=== PATIENT | male | born 1940 | race Hispanic/Latino ===

== ENCOUNTER 2017-01-17 23:39 | Inpatient (IN) | payer MEDICARE ==
--- NOTE | 2017-01-17 23:45 | ED PDOC ---
Arrival/HPI - General Chief Complaint: Shortness Of Breath Time Seen by Provider: 01/17/17 23:42 Historian: Patient - History of Present Illness Narrative History of Present Illness (Text): 01/17/17 23:45 Rohit Castro is a 76 year old male, whose past medical history includes COPD , lung mass, CAD, and hypertension, who presents to the ED brought in by EMS accompanied by daughter complaining of shortness of breath. Daughter states patient underwent a lung biopsy for evaluation of a right upper lung mass earlier today and patient now complaining of shortness of breath tonight. Patient denies any fever, chills, nausea, vomiting, headache, dizziness, or any other complaints. PMD: Dr. Ramos Human Resources Executive: Dr. Alexander Time/Duration: Other (tonight) Symptom Onset: Gradual Symptom Course: Unchanged Activities at Onset: Light Context: Home Past Medical History - Provider Review Nursing Documentation Reviewed: Yes - Tetanus Immunization Tetanus Immunization: Unknown - Cardiac Hx Pacemaker: No - Pulmonary Hx Chronic Obstructive Pulmonary Disease (COPD): Yes - Neurological Hx Paralysis: No - HEENT Hx HEENT Disorder: Yes (RX READING GLASSES) - Hematological/Oncological Hx Blood Transfusions: No - Musculoskeletal/Rheumatological Hx Musculoskeletal Disorders: Yes - Gastrointestinal Hx Gastrointestinal Disorders: (INTERNAL HEMORRHOIDS) - Psychiatric Hx Emotional Abuse: No Hx Physical Abuse: No Hx Substance Use: No - Surgical History Other/Comment: CARDIAC STENTS - Anesthesia Hx Anesthesia Reactions: No Hx Malignant Hyperthermia: No - Suicidal Assessment Feels Threatened In Home Enviroment: No Family/Social History - Physician Review Nursing Documentation Reviewed: Yes Family/Social History: Unknown Family HX Smoking Status: Heavy Smoker > 10 Cigarettes Daily Hx Alcohol Use: Yes (OCCASIONAL BEER) Hx Substance Use: No Hx Substance Use Treatment: No Allergies/Home Meds Allergies/Adverse Reactions: Allergies diltiazem Allergy (Severe, Verified 01/16/17 12:04) RASH Home Medications: Home Meds Medication Instructions Recorded Confirmed Aspirin [Aspir 81] 81 mg PO DAILY 09/25/11 01/17/17 Atorvastatin Calcium [Lipitor] 20 mg PO DAILY 09/25/11 01/17/17 Albuterol 0.083% [Albuterol 3 ml IH Q6H PRN 01/16/17 01/17/17 Sulfate 3 Ml] Lisinopril [Zestril] 10 mg PO DAILY 01/16/17 01/17/17 Mesalamine [Lialda] 2 tab PO QAM 01/16/17 01/17/17 Ranolazine [Ranexa] 500 mg PO BID 01/16/17 01/17/17 Atropine/Diphenoxylate [Lonox 1 tab PO AMHS PRN 01/17/17 01/17/17 0.025 MG-2.5 MG] levoFLOXacin [Levaquin] 500 mg PO DAILY 01/17/17 01/17/17 Review of Systems - Physician Review All systems were reviewed & negative as marked: Yes - Review of Systems Constitutional: Normal. absent: Fevers Eyes: Normal ENT: Normal Respiratory: SOB Gastrointestinal: Normal. absent: Abdominal Pain, Diarrhea, Nausea, Vomiting Genitourinary Male: Normal. absent: Dysuria, Frequency, Hematuria, Urinary Output Changes Musculoskeletal: Normal. absent: Back Pain, Neck Pain Skin: Normal. absent: Rash Neurological: Normal. absent: Headache, Dizziness Endocrine: Normal Hemo/Lymphatic: Normal Psychiatric: Normal Physical Exam Vital Signs Reviewed: Yes Vital Signs Temp Pulse Resp BP Pulse Ox 01/18/17 04:15 20 91 L 01/18/17 04:10 96 H 20 180/75 H 91 L 01/18/17 02:41 98.1 F 63 20 162/78 H 94 L 01/18/17 02:19 63 23 150/83 88 L 01/18/17 02:14 67 27 H 146/85 90 L 01/18/17 02:04 71 18 154/90 H 90 L 01/18/17 01:59 69 22 160/82 H 91 L 01/18/17 01:57 70 20 148/85 91 L 01/18/17 01:49 70 18 145/84 92 L 01/18/17 01:44 69 7 L 156/86 H 93 L 01/18/17 01:39 72 7 L 148/85 94 L 01/17/17 23:45 22 93 L 01/17/17 23:39 98.1 F 88 24 161/96 H 95 Temperature: Afebrile Blood Pressure: Hypertensive Pulse: Regular Respiratory Rate: Normal Appearance: Positive for: Well-Appearing, Non-Toxic Pain Distress: None Mental Status: Positive for: Alert and Oriented X 3 - Systems Exam Head: Present: Atraumatic, Normocephalic Pupils: Present: PERRL Extroacular Muscles: Present: EOMI Conjunctiva: Present: Normal Mouth: Present: Moist Mucous Membranes Neck: Present: Normal Range of Motion Respiratory/Chest: Present: Wheezes (Slight end-expiratory wheezing bilaterally) , Decreased Breath Sounds (absent breath sounds to right upper lung). No: Respiratory Distress, Accessory Muscle Use Medical Decision Making ED Course and Treatment: 01/17/17 23:45 Impression: 76 year old male c/o shortness of breath tonight. Pt underwent lung biopsy earlier today. Differential Diagnosis included but are not limited to: pneumothorax vs. COPD Plan: -- EKG -- CXR -- Labs, cardiac enzymes, BNP -- Duoneb -- Reassess and disposition Progress Notes: 01/17/17 23:51 Reviewed EKG, NSr at 73 bpm. Inferior infarct. Non-specific ST/T wave changes. reviewed radiology, CXR shows right-sided pneumothorax. residential housekeeper television equipment operator paged. 01/17/17 23:[address] Ang, surgical aide television equipment operator, who is aware and agrees to evaluate pt. Call placed Dr. Almonte, surgeon television equipment operator. 01/18/17 01:00 PROCEDURE: Chest Tube Insertion Performed by the surgical aide under my supervision. Consent: Discussion of the risks, benefits, and alternatives to the procedure, along with informed consent was precluded by the urgency of the procedure and the patient condition. Timeout: A timeout to verify the correct patient, procedure, and site was performed. Procedure Site: right anterior chest wall Indication: Right pneumothorax Preparation: The patient was placed in the supine position and the skin over the right anterior chest wall was prepped and draped in sterile fashion. 1% Lidocaine was used to anesthetize the surrounding skin area. Procedure: Using a scalpel and blunt dissection, 2 cm skin incision was made in the mid-axillary line at the inframammary crease. Utilizing blunt dissection a subcutaneous tunnel was created cephalad just adjacent to the superior rib. RIGHT pleural space was entered bluntly and gush of air was observed. A finger was inserted into the pleural space to check for anatomy and guide tube insertion. A 28 F thoracostomy tube was inserted using a Tami clamp and positioned appropriately. The chest tube was sutured securely to the skin and a sterile dressing applied. A pleurevac was attached to the chest tube and a chest x-ray obtained. Post-procedure: The patient tolerated the procedure well with no immediate complications/PT. WITH IMMEDIATE RELIEF FOLLOWING THE PROCEDURE* CXR Confirmation: Yes 01/18/17 01:22 reviewed post-chest tube CXR, shows right lung re-expanded. 01/18/17 01:[address] Nida Ramos, who is aware and agrees with plan. Accepts pt in to his service. Requests Dr. Almonte on consult. 01/18/17 01:[address] Bernard San, e learning manager, who is aware and agrees with plan. Pt will be admitted to ICU for pneumothorax under Dr. Ramos's service. 01/18/17 02:05 Case discussed with medical engineer television equipment operator, Dr. Deshpande, made aware of admission.To ED with e learning manager to evaluate the pt. - Critical Care Critical Care Minutes: 45 minutes - Lab Interpretations Lab Results: 01/17/17 23:50 01/17/17 23:50 Lab Results 01/17/17 23:50: WBC 11.0 D, RBC 4.55, Hgb 15.0, Hct 41.8 L, MCV 91.9, MCH 33.0 , MCHC 35.9, RDW 13.7, Plt Count 183, MPV 10.3 01/17/17 23:50: Sodium 137, Potassium 4.3, Chloride 103, Carbon Dioxide 20 L, Anion Gap 18, BUN 19, Creatinine 1.0, Est GFR ( Amer) > 60, Est GFR (Non- Af Amer) > 60, Random Glucose 108, Calcium 9.7, Total Bilirubin 1.0, AST 34, ALT 29, Alkaline Phosphatase 83, Lactate Dehydrogenase 757 H, Total Creatine Kinase 117, Troponin I < 0.01, NT-Pro-B Natriuret Pep 64.4, Total Protein 8.4 H , Albumin 4.6, Globulin 3.8, Albumin/Globulin Ratio 1.2 01/17/17 23:50: PT 11.3, INR 1.05, APTT 34.3 H I have reviewed the lab results: Yes - RAD Interpretation Radiology Orders: 01/17/17 23:45 CHEST PORTABLE [RAD] Stat 01/18/17 01:22 CHEST PORTABLE [RAD] Stat Senior Sourcing Manager: ED Physician - EKG Interpretation Interpreted by ED Physician: Yes Type: 12 lead EKG - Medication Orders Current Medication Orders: Albuterol/Ipratropium (Duoneb 3 Mg/0.5 Mg (3 Ml) Ud) 3 ml IH Q2H PRN PRN Reason: Shortness of Breath Aspirin (Ecotrin) 81 mg PO DAILY SERGIO Atorvastatin Calcium (Lipitor) 20 mg PO DAILY SERGIO Cefazolin Sodium (Ancef 1gm In Ns) 1 gm in 100 mls @ 100 mls/hr IVPB STAT STA PRN Reason: Protocol Stop: 01/18/17 05:38 Lisinopril (Zestril) 10 mg PO DAILY [facility] Morphine Sulfate (Morphine) 2 mg IVP Q4H PRN PRN Reason: Pain, moderate (4-7) Last Admin: 01/18/17 02:34 Dose: 2 mg [facility] Pain Assessment Document 01/18/17 02:34 [facility] (Rec: 01/18/17 02:[address] [id number]) Pain Reassessment Is this a pain reassessment? No Sleep Is patient sleeping during reassessment? No Presence of Pain Presence of Pain Yes Pain Scale Used Pain Scale Used Numeric Location Left, Right or Bilateral Right Pain Location Body Site Chest Description Description Constant Intensity of Pain at present 7 Pain Behavior Facial Grimacing Aggravating Factors Changing Position Alleviating Factors/Management Position Change Techniques Alleviating Factors Medication IVP Administration Document 01/18/17 02:34 [facility] (Rec: 01/18/17 02:[address] [id number]) Charges for Administration # of IVP Administrations 1 Re-Assess: [facility] Pain Assessment Document 01/18/17 03:34 [facility] (Rec: 01/18/17 04:14 [facility] [id number] Pain Reassessment Is this a pain reassessment? Yes Sleep Is patient sleeping during reassessment? No Presence of Pain Presence of Pain Yes Pain Scale Used Pain Scale Used Numeric Description Intensity of Pain at present 7 Mesalamine [Lialda] (2 Tab (Home Med)) 2 tab PO QAM SERGIO Ranolazine [Ranexa] (500 Mg (Home Med)) 500 mg PO BID SERGIO Pantoprazole Sodium (Protonix Ec Tab) 40 mg PO 0600 SERGIO Discontinued Medications Albuterol/Ipratropium (Duoneb 3 Mg/0.5 Mg (3 Ml) Ud) 3 ml IH ONCE STA Stop: 01/17/17 23:47 Last Admin: 01/17/17 23:57 Dose: 3 ml Lidocaine HCl (Lidocaine 1% (20ml)) Confirm Administered Dose 20 ml .ROUTE .STK- MED ONE Stop: 01/18/17 01:01 Morphine Sulfate (Morphine) Confirm Administered Dose 4 mg .ROUTE .STK-MED ONE Stop: 01/18/17 00:36 Last Admin: 01/18/17 02:31 Dose: Morphine Sulfate (Morphine) 4 mg IVP STAT STA Stop: 01/18/17 00:46 Last Admin: 01/18/17 00:45 Dose: 4 mg MAR Pain Assessment Document 01/18/17 00:45 [email or web address] (Rec: 01/18/17 02:[address] [id number]) Pain Reassessment Is this a pain reassessment? No Sleep Is patient sleeping during reassessment? No Presence of Pain Presence of Pain Yes Pain Scale Used Pain Scale Used Numeric Location Left, Right or Bilateral Right Pain Location Body Site Chest Description Description Constant Intensity of Pain at present 7 Pain Behavior Facial Grimacing Aggravating Factors Changing Position Alleviating Factors/Management Position Change Techniques Alleviating Factors Medication IVP Administration Document 01/18/17 00:45 [email or web address] (Rec: 01/18/17 02:35 [facility] [id number]) Charges for Administration # of IVP Administrations 1 - Scribe Statement The provider has reviewed the documentation as recorded by the Scribroman Sullivan All medical record entries made by the Scribroman were at my direction and personally dictated by me. I have reviewed the chart and agree that the record accurately reflects my personal performance of the history, physical exam, medical decision making, and the department course for this patient. I have also personally directed, reviewed, and agree with the discharge instructions and disposition. Disposition/Present on Arrival - Present on Arrival Any Indicators Present on Arrival: No History of DVT/PE: No History of Uncontrolled Diabetes: No Urinary Catheter: No History of Decub. Ulcer: No History Surgical Site Infection Following: None - Disposition Have Diagnosis and Disposition been Completed?: Yes Diagnosis: Pneumothorax, Status post chest tube placement Disposition: HOSPITALIZED Disposition Time: 02:00 Patient Plan: Admission Patient Problems: Current Active Problems Problem Status Onset Pneumothorax Acute Status post chest tube placement Acute Condition: STABLE
[2017-01-17] MEDS ORDERED: Albuterol-Ipratrop 3 mg / 0.5 (3 ml) UD IH STA (23:46)
[2017-01-18 00:06] LABS: HEMATOCRIT 41.8 % (42.0-52.0); MEAN CELL VOLUME 91.9 fl (80.0-105.0); MEAN CORPUSCULAR HGB CONC 35.9 g/dl (31.0-37.0); MEAN PLATELET VOLUME 10.3 fl (7.0-11.0); RED CELL DISTRIBUTION WIDTH 13.7 % (11.5-14.5)
[2017-01-18 00:11] LABS: ALB/GLOB RATIO 1.2 (1.1-1.8); ALKALINE PHOSPHATASE 83 U/L (38-126); ALT/SGPT 29 U/L (7-56); AST/SGOT 34 U/L (17-59); BLOOD UREA NITROGEN 19 mg/dL (7-21); CALCIUM 9.7 mg/dL (8.4-10.5); CARBON DIOXIDE 20 mmol/L (21-33); CHLORIDE 103 mmol/L (98-107); GFR AFRICAN-AMERICAN > 60; GLUCOSE,RANDOM 108 mg/dL (70-110); POTASSIUM 4.3 mmol/L (3.6-5.0); SODIUM 137 mmol/L (132-148); TOTAL PROTEIN 8.4 g/dL (5.8-8.3)
[2017-01-18 00:14] LABS: INR 1.05 (0.93-1.08); PARTIAL THROMBOPLASTIN TIME 34.3 Seconds (23.7-30.8)
[2017-01-18 00:33] LABS: TROPONIN I < 0.01 ng/mL
[2017-01-18] MEDS ORDERED: Morphine 4 mg/ml ISec ONE (00:35)
[2017-01-18] MEDS ORDERED: Morphine 4 mg/ml ISec IVP STA (00:45)
[2017-01-18] MEDS ORDERED: Lidocaine 1% Inj (20ml) ONE (01:00)
--- NOTE | 2017-01-18 02:02 | CP.PCM.CON ---
History of Present Illness - History of Present Illness History of Present Illness: General Surgery Consult Note for Dr. Almonte Reason for Consult: R sided Pneumothorax 76 M with PMH of COPD, Lung nodule, CAD with stents x 5, MS, Prostate CA presents to [facility] with complaint of shortness of breath. Patient went for lung biopsy this afternoon. Around 11 pm, patient became short of breath and decided to call his daughter to bring him to hospital. Patient never experienced this feeling before. Patient currently denying any pain. Exertion exacerbates his shortness of breath while nothing alleviates it. Patient denies fever/chills, cp , abd pain, n/v/d, numbness/tingling, syncope, vertigo, lightheadedness/ dizziness. PMD: Dr. Ramos PMH: CAD with stents x 5, MS (1998), COPD, Lung nodule, Prostate CA s/p radioactive seeds/radiation, HTN, colitis Meds: As per EMR Allergy: Diltiazem PSH: Cardiac stents x 5, cardiac cath, Hosp: Last year for cardiac cath FH: CAD/MS in Mother and Father Social: 3 packs per day for 60 years, social drinker, denies illicit drug use Review of Systems - Constitutional Constitutional: absent: Chills, Fatigue, Fever, Malaise - EENT Eyes: absent: Change in Vision, Loss of Vision Ears: absent: Dizziness Nose/Mouth/Throat: absent: Nasal Congestion, Sore Throat, Neck Pain - Cardiovascular Cardiovascular: Dyspnea. absent: Chest Pain, Chest Pain at Rest, Chest Pain with Activity, Claudication, Diaphoresis, Edema, Palpitations, Pedal Edema, Radiating Pain - Respiratory Respiratory: Dyspnea, Dyspnea on Exertion. absent: Cough, Hemoptysis, Wheezing , Chest Congestion - Gastrointestinal Gastrointestinal: absent: Abdominal Pain, Constipation, Diarrhea, Nausea, Vomiting - Genitourinary Genitourinary: absent: Change in Urinary Stream, Difficulty Urinating, Dysuria - Musculoskeletal Musculoskeletal: absent: Arthralgias, Myalgias, Numbness, Tingling - Integumentary Integumentary: absent: Changing Lesions, New Lesions - Neurological Neurological: absent: Dizziness, Numbness, Headaches, Syncope, Tingling, Vertigo , Weakness - Psychiatric Psychiatric: absent: Anxiety, Depression, Homicidal Ideation, Suicidal Ideation - Endocrine Endocrine: absent: Fatigue, Palpitations, Polydipsia, Polyphagia, Polyuria - Hematologic/Lymphatic Hematologic: absent: Easy Bleeding, Easy Bruising, Lymphadenopathy Past Patient History - Tetanus Immunizations Tetanus Immunization: Unknown - Past Social History Smoking Status: Heavy Smoker > 10 Cigarettes Daily - CARDIAC Hx Pacemaker: No - PULMONARY Hx Chronic Obstructive Pulmonary Disease (COPD): Yes - NEUROLOGICAL Hx Paralysis: No - HEENT Hx HEENT Problems: Yes (RX READING GLASSES) - HEMATOLOGICAL/ONCOLOGICAL Hx Blood Transfusions: No - MUSCULOSKELETAL/RHEUMATOLOGICAL Hx Musculoskeletal Disorders: Yes - GASTROINTESTINAL Hx Gastrointestinal Disorders: (INTERNAL HEMORRHOIDS) - PSYCHIATRIC Hx Emotional Abuse: No Hx Physical Abuse: No Hx Substance Use: No - SURGICAL HISTORY Other/Comment: CARDIAC STENTS - ANESTHESIA Hx Anesthesia Reactions: No Hx Malignant Hyperthermia: No Meds Allergies/Adverse Reactions: Allergies Allergy/AdvReac Type Severity Reaction Status Date / Time diltiazem Allergy Severe RASH Verified 01/16/17 12:04 Physical Exam - Constitutional Appears: In Acute Distress - Head Exam Head Exam: ATRAUMATIC, NORMOCEPHALIC - Eye Exam Eye Exam: Normal appearance - ENT Exam ENT Exam: Mucous Membranes Moist - Neck Exam Additional comments: trachea midline - Respiratory Exam Respiratory Exam: Accessory Muscle Use, Decreased Breath Sounds (on R side) - Cardiovascular Exam Cardiovascular Exam: REGULAR RHYTHM - GI/Abdominal Exam GI & Abdominal Exam: Soft. absent: Distended, Guarding, Rebound, Tenderness - Extremities Exam Extremities exam: Positive for: normal capillary refill, pedal pulses present - Neurological Exam Neurological exam: Alert, CN II-XII Intact, Oriented x3 - Psychiatric Exam Psychiatric exam: Normal Affect, Normal Mood - Skin Skin Exam: Dry, Intact, Normal Color, Warm Results - Vital Signs Recent Vital Signs: Last Vital Signs Temp 98.1 F 01/17/17 23:39 Pulse 88 01/17/17 23:39 Resp 24 01/17/17 23:39 BP 161/96 H 01/17/17 23:39 Pulse Ox 95 01/17/17 23:39 - Labs Result Diagrams: 01/18/17 06:30 01/18/17 06:30 Labs: Laboratory Results - last 24 hr 01/17/17 01/17/17 01/17/17 23:50 23:50 23:50 WBC 11.0 D RBC 4.55 Hgb 15.0 Hct 41.8 L MCV 91.9 MCH 33.0 MCHC 35.9 RDW 13.7 Plt Count 183 MPV 10.3 PT 11.3 INR 1.05 APTT 34.3 H Sodium 137 Potassium 4.3 Chloride 103 Carbon Dioxide 20 L Anion Gap 18 BUN 19 Creatinine 1.0 Est GFR ( Amer) > 60 Est GFR (Non-Af Amer) > 60 Random Glucose 108 Calcium 9.7 Total Bilirubin 1.0 AST 34 ALT 29 Alkaline Phosphatase 83 Lactate Dehydrogenase 757 H Total Creatine Kinase 117 Troponin I < 0.01 NT-Pro-B Natriuret Pep 64.4 Total Protein 8.4 H Albumin 4.6 Globulin 3.8 Albumin/Globulin Ratio 1.2 Assessment & Plan - Assessment and Plan (Free Text) Plan: 76 M with PMH of COPD, Lung nodule s/p lung biopsy (01/17), CAD with stents x 5, MS, Prostate CA with shortness of breath -Chest tube inserted -Pleurovac on Continuous suction -Analgesics -Daily CXRs -Will DW Dr. Gage Ang PGY1
[2017-01-18] MEDS: Morphine 2 mg/ml ISec IVP PRN ×4 (02:34→15:09)
--- NOTE | 2017-01-18 03:10 | CP.PCM.CON ---
History of Present Illness - History of Present Illness History of Present Illness: Crhis Florian DO PGY1 Consult Note 76 M with PMH of COPD, Lung nodule, HTN, CAD with stents x 5, PA (1998), Prostate CA, colitis presents with shortness of breath. Patient went for lung biopsy this afternoon around 6 pm. Around 11 pm, patient felt SOB and told his daughter to bring him to hospital. Patient has never had an episode like this before. Exerting himself and being active makes his SOB worse. He says he is is usually hard for him to even walk a couple feet but its even worse today. Patient denies CP, fever/chills, abd pain, n/v/d, numbness/tingling, syncope, vertigo, lightheadedness/dizziness or any other complaints. PMD: Dr. Ramos Celery Wrapper: Dr. Alexander PMH: HTN, CAD with stents x 5, PA (1998), COPD, Lung nodule, Prostate CA s/p radioactive seeds/radiation, colitis Meds: Lonox, Aspirin 81mg, Levaquin, Lipitor, Albuterol, lisinopril, Mesalamine , Ranolazine PSH: Cardiac stents x 5, cardiac cath, prostate surgery FH Hx: Mother and Father both had CAD and heart issues Social Hx: 3 packs per day for 60 years, social drinker, denies illicit drug use Allergy: Diltiazem (rash) Review of Systems - Constitutional Constitutional: absent: Chills, Excessive Sweating, Fever - EENT Eyes: absent: Change in Vision Nose/Mouth/Throat: absent: Nasal Congestion - Cardiovascular Cardiovascular: Dyspnea. absent: Chest Pain - Respiratory Respiratory: Dyspnea - Gastrointestinal Gastrointestinal: absent: Abdominal Pain - Genitourinary Genitourinary: absent: Dysuria - Musculoskeletal Musculoskeletal: absent: Arthralgias - Neurological Neurological: absent: Numbness, Tingling Past Patient History - Tetanus Immunizations Tetanus Immunization: Unknown - Past Social History Smoking Status: Heavy Smoker > 10 Cigarettes Daily - CARDIAC Hx Pacemaker: No - PULMONARY Hx Chronic Obstructive Pulmonary Disease (COPD): Yes - NEUROLOGICAL Hx Paralysis: No - HEENT Hx HEENT Problems: Yes (RX READING GLASSES) - HEMATOLOGICAL/ONCOLOGICAL Hx Blood Transfusions: No - MUSCULOSKELETAL/RHEUMATOLOGICAL Hx Musculoskeletal Disorders: Yes - GASTROINTESTINAL Hx Gastrointestinal Disorders: (INTERNAL HEMORRHOIDS) - PSYCHIATRIC Hx Emotional Abuse: No Hx Physical Abuse: No Hx Substance Use: No - SURGICAL HISTORY Other/Comment: CARDIAC STENTS - ANESTHESIA Hx Anesthesia Reactions: No Hx Malignant Hyperthermia: No Meds Allergies/Adverse Reactions: Allergies Allergy/AdvReac Type Severity Reaction Status Date / Time diltiazem Allergy Severe RASH Verified 01/16/17 12:04 - Medications Medications: Current Medications Morphine Sulfate (Morphine) 2 mg IVP Q4H PRN PRN Reason: Pain, moderate (4-7) Last Admin: 01/18/17 02:34 Dose: 2 mg Physical Exam - Constitutional Appears: Non-toxic, No Acute Distress - Head Exam Head Exam: ATRAUMATIC, NORMAL INSPECTION, NORMOCEPHALIC - Eye Exam Eye Exam: Normal appearance, PERRL - Respiratory Exam Respiratory Exam: Decreased Breath Sounds Additional comments: decreased breath sounds on the right lung field - Cardiovascular Exam Cardiovascular Exam: REGULAR RHYTHM, +S1, +S2 - GI/Abdominal Exam GI & Abdominal Exam: Normal Bowel Sounds - Neurological Exam Neurological exam: Alert, Oriented x3 - Psychiatric Exam Psychiatric exam: Normal Affect Results - Vital Signs Recent Vital Signs: Last Vital Signs Temp 98.1 F 01/18/17 02:41 Pulse 63 01/18/17 02:41 Resp 20 01/18/17 02:41 BP 162/78 H 01/18/17 02:41 Pulse Ox 94 L 01/18/17 02:41 - Labs Result Diagrams: 01/17/17 23:50 01/17/17 23:50 Assessment & Plan - Assessment and Plan (Free Text) Assessment: 76 M with PMH of COPD, Lung nodule, HTN, CAD with stents x 5, PA (1998), Prostate CA presents with shortness of breath after ungergoing a lung biopsy for a RUL mass. Patient is being admitted to the ICU for right pneumothorax. Plan: Neuro: -Patient is AAOx3, speaking coherently, able to answer questions and provide a history -CN II-XII intact bilaterally - continue to monitor, maintain euthermia Cardiovascular -HR: 63 BP: 162/78 -EKG shows NSR at 73 bpm. Non-specific ST/T wave changes, pending official read. - No intervention indicated at this time -Continue home medications Aspirin 81, Atorvastatin, Lisinopril, Ranolazine Pulmonary -History of COPD -Oxygen saturation is 94% on nasal canula -patient breathing at a rate 20 states slight discomfort while breathing - HC03: 20 -Chest x-ray: CXR shows right-sided pneumothorax, pending official read -Surgery consulted (Gage) and chest tube placed by resident -Ann started -Morphine Given for pain Renal -BUN: 19 Cr: 1.0 -Monitor and replete electrolytes as needed - maintain euvolemia Infectious Disease -Max temp: 98.1 -WBC: 11.1, patient currently afebrile Hematology -Hb: 15 Hct: 41.8 Platelets: 183 PT: 11.3 INR: 1.05 -monitor and maintain GI -AST: 34 ALT: 29 -History of Colitis -Continue home mesalamine Endocrine: - Blood Sugar is 108 GI/DVT Prophylaxis Patient seen and discussed with the attending
[2017-01-18] MEDS ORDERED: Albuterol-Ipratrop 3 mg / 0.5 (3 ml) UD IH PRN (03:28)
[2017-01-18] MEDS ORDERED: ceFAZolin 1 gm in NS 1 GM/100 ML BAG IVPB STA (04:39)
[2017-01-18 05:26] VITALS: BMI 31.0
--- NOTE | 2017-01-18 07:21 | RAD ---
HISTORY: s/p pneumo with chest tube insertion COMPARISON: Portable chest 01/18/2017 01:34 a.m.. FINDINGS: Right-sided chest tube is unchanged in position again seen terminating in the right apex. . LUNGS: Limited atelectasis favored over infiltrate at the medial right lung base with the left lung clear. COPD related hyperinflation again evident. PLEURA: No definitive pneumothorax is appreciate the right or left lung lambert. Trace fluid is seen in the minor fissure versus linear atelectasis adjacent to it no left pleural effusion. CARDIOVASCULAR: Cardiomegaly appears stable. No pulmonary vascular derangement appreciated grossly. OSSEOUS STRUCTURES: No significant abnormalities. VISUALIZED UPPER ABDOMEN: Normal. OTHER FINDINGS: None. IMPRESSION: Right-sided chest tube unchanged in position with no apparent pneumothorax identified bilaterally. Trace fluid is suggested the minor fissure versus adjacent atelectasis. Limited right infrahilar atelectasis is favored over infiltrate at the medial right base. COPD again noted. Stable cardiomegaly.
[2017-01-18 07:23] LABS: BASO # 0.02 K/mm3 (0.0-2.0); BASO % 0.2 % (0.0-3.0); EOS # 0.1 (0.0-0.7); EOS % 0.8 % (1.5-5.0); GRAN # 9.07 (1.4-6.5); GRAN % 81.4 % (50.0-68.0); HEMATOCRIT 39.2 % (42.0-52.0); LYMPH # 0.9 (1.2-3.4); LYMPH % 8.4 % (22.0-35.0); MEAN CELL VOLUME 91.6 fl (80.0-105.0); MEAN CORPUSCULAR HGB CONC 34.9 g/dl (31.0-37.0); MEAN PLATELET VOLUME 10.4 fl (7.0-11.0); MONO % 9.2 % (1.0-6.0); RED CELL DISTRIBUTION WIDTH 13.6 % (11.5-14.5); WHITE BLOOD COUNT 11.1 10^3/ul (4.5-11.0)
[2017-01-18] MEDS: Pantoprazole 40 mg EC Tab PO SCH (07:31)
[2017-01-18 07:44] LABS: BLOOD UREA NITROGEN 18 mg/dL (7-21); CALCIUM 9.3 mg/dL (8.4-10.5); CARBON DIOXIDE 23 mmol/L (21-33); CHLORIDE 104 mmol/L (98-107); GFR AFRICAN-AMERICAN > 60; GLUCOSE,RANDOM 124 mg/dL (70-110); POTASSIUM 4.1 mmol/L (3.6-5.0); SODIUM 139 mmol/L (132-148)
--- NOTE | 2017-01-18 08:30 | RAD ---
HISTORY: post chest tube COMPARISON: Comparison made with prior study 01/17/2017 at 2349 hours FINDINGS: LUNGS: Interval placement right-sided chest tube with decrease size right pneumothorax. . Bibasilar atelectasis right greater than left again noted. PLEURA: No significant pleural effusion identified, no pneumothorax apparent. CARDIOVASCULAR: Heart remains enlarged. OSSEOUS STRUCTURES: No significant abnormalities. VISUALIZED UPPER ABDOMEN: Normal. OTHER FINDINGS: Small amount of subcutaneous air seen along the right chest wall surrounding the entry point of the right-sided chest tube. IMPRESSION: Interval placement right-sided chest tube with decrease size right pneumothorax. Patchy bibasilar atelectasis right greater than left
--- NOTE | 2017-01-18 08:56 | RAD ---
HISTORY: sob COMPARISON: Frontal chest radiograph 12/30/2016. FINDINGS: LUNGS: Moderately large right pneumothorax is appreciated occupying 30-40 percent of the right thoracic cavity with atelectasis noted within the majority of the right lung though mild in severity. No left pneumothorax is is identified. No mediastinal shift to suggest tension. No pleural effusions bilaterally. COPD again evident. PLEURA: As above. CARDIOVASCULAR: Cardiomediastinal silhouette appears stable. No pulmonary vascular derangement. OSSEOUS STRUCTURES: No significant abnormalities. VISUALIZED UPPER ABDOMEN: Normal. OTHER FINDINGS: None. IMPRESSION: A mildly large interval right pneumothorax identified without signs of tension. Remainder the examination is stable in the interval.
[2017-01-18] MEDS ORDERED: Morphine 2 mg/ml ISec IVP ONE (09:19)
[2017-01-18] MEDS ORDERED: MESALAMINE PO SCH (10:00)
[2017-01-18] MEDS ORDERED: Ranolazine [Ranexa] 500 MG (HOME MED) PO SCH (10:00)
[2017-01-18] MEDS ORDERED: Home Med 1 UNIT PO SCH ×2 (14:00→18:00)
--- NOTE | 2017-01-18 14:28 | CP.CCUPN ---
<Fabi Livingston - Last Filed: 01/18/17 14:25> CCU Subjective - Physician Review Events Since Last Encounter (Free Text): 01/18/17 14:25 Chest tube placed overnight Subjective (Free Text): 01/18/17 14:26 Critical care progress note for Dr. Jazmyn Livingston, PGY-1 Pt S & E at bedside. Pt reports improved breathing since chest tube placement, insertion site is painful- asking for pain meds. Denies N/V/F/C, SOB, CP, ab pain. Critical Care Time Spent (in minutes): 35 CCU Objective - Vital Signs / Intake & Output Intake and Output (Last 8hrs): Intake & Output 01/17/17 01/18/17 01/18/17 22:59 06:59 14:59 Weight 95.436 kg 95.254 kg - Physical Exam Head: Positive for: Atraumatic, Normocephalic Extroacular Muscles: Positive for: EOMI Conjunctiva: Positive for: Normal Mouth: Positive for: Moist Mucous Membranes Nose (External): Positive for: Atraumatic Neck: Positive for: Normal Range of Motion Respiratory/Chest: Positive for: Clear to Auscultation, Good Air Exchange, Other (Chest tube dressing C/D/I). Negative for: Respiratory Distress, Accessory Muscle Use, Wheezes, Decreased Breath Sounds (absent breath sounds to right upper lung), Rhonchi, Tachypneic Cardiovascular: Positive for: Regular Rate and Rhythm, Normal S1, S2. Negative for: Murmurs Abdomen: Positive for: Normal Bowel Sounds. Negative for: Tenderness, Distention, Peritoneal Signs Upper Extremity: Positive for: Normal Inspection. Negative for: Cyanosis, Edema Lower Extremity: Positive for: Normal Inspection. Negative for: Edema Neurological: Positive for: GCS=15, CN II-XII Intact, Speech Normal Skin: Positive for: Warm, Dry, Normal Color. Negative for: Rashes Psychiatric: Positive for: Alert, Oriented x 3, Normal Insight, Normal Concentration - Medications Active Medications: Active Medications Generic Name Dose Route Start Last Admin Trade Name Freq PRN Reason Stop Dose Admin Albuterol/Ipratropium 3 ml 01/18/17 03:28 Duoneb 3 Mg/0.5 Mg (3 Ml) Ud IH Q2H PRN Shortness of Breath Aspirin 81 mg 01/18/17 10:00 01/18/17 09:01 Ecotrin PO 81 mg DAILY SERGIO Administration Atorvastatin Calcium 20 mg 01/18/17 10:00 01/18/17 09:00 Lipitor PO 20 mg DAILY SERGIO Administration Home Med 1 unit 01/18/17 18:00 Home Med PO BID SERGIO Home Med 1 unit 01/18/17 14:00 Home Med PO TID SERGIO Lisinopril 10 mg 01/18/17 10:00 01/18/17 09:01 Zestril PO 10 mg DAILY SERGIO Administration Morphine Sulfate 4 mg 01/18/17 10:31 01/18/17 10:57 Morphine IVP 4 mg Q4H PRN Administration Pain, moderate (4-7) Pantoprazole Sodium 40 mg 01/18/17 06:00 01/18/17 07:31 Protonix Ec Tab PO 40 mg 0600 SERGIO Administration - Patient Studies Lab Studies: Lab Studies 01/18/17 01/18/17 Range/Units 06:30 06:30 WBC 11.1 H (4.5-11.0) 10^3/ul RBC 4.28 (3.5-6.1) 10^6/uL Hgb 13.7 L (14.0-18.0) g/dL Hct 39.2 L (42.0-52.0) % MCV 91.6 (80.0-105.0) fl MCH 32.0 (25.0-35.0) pg MCHC 34.9 (31.0-37.0) g/dl RDW 13.6 (11.5-14.5) % Plt Count 170 (120.0-450.0) 10^3/uL MPV 10.4 (7.0-11.0) fl Gran % 81.4 H (50.0-68.0) % Lymph % (Auto) 8.4 L (22.0-35.0) % Bryan % (Auto) 9.2 H (1.0-6.0) % Eos % (Auto) 0.8 L (1.5-5.0) % Baso % (Auto) 0.2 (0.0-3.0) % Gran # 9.07 H (1.4-6.5) Lymph # 0.9 L (1.2-3.4) Bryan # 1.0 H (0.1-0.6) Eos # 0.1 (0.0-0.7) Baso # 0.02 (0.0-2.0) K/mm3 Sodium 139 (132-148) mmol/L Potassium 4.1 (3.6-5.0) mmol/L Chloride 104 (98-107) mmol/L Carbon Dioxide 23 (21-33) mmol/L Anion Gap 16 (10-20) BUN 18 (7-21) mg/dL Creatinine 1.0 (0.5-1.4) mg/dL Est GFR ( Amer) > 60 Est GFR (Non-Af Amer) > 60 Random Glucose 124 H (70-110) mg/dL Calcium 9.3 (8.4-10.5) mg/dL Laboratory Results - last 24 hr 01/18/17 01/18/17 06:30 06:30 WBC 11.1 H RBC 4.28 Hgb 13.7 L Hct 39.2 L MCV 91.6 MCH 32.0 MCHC 34.9 RDW 13.6 Plt Count 170 MPV 10.4 Gran % 81.4 H Lymph % (Auto) 8.4 L Bryan % (Auto) 9.2 H Eos % (Auto) 0.8 L Baso % (Auto) 0.2 Gran # 9.07 H Lymph # 0.9 L Bryan # 1.0 H Eos # 0.1 Baso # 0.02 Sodium 139 Potassium 4.1 Chloride 104 Carbon Dioxide 23 Anion Gap 16 BUN 18 Creatinine 1.0 Est GFR ( Amer) > 60 Est GFR (Non-Af Amer) > 60 Random Glucose 124 H Calcium 9.3 Review of Systems - Review of Systems All systems: reviewed and no additional remarkable complaints except - Constitutional Constitutional: absent: Fever, Chills - Cardiovascular Cardiovascular: absent: Chest Pain, UNREMARKABLE (chest wall insertion of chest tube site with pain) - Respiratory Respiratory: absent: Cough - Gastrointestinal Gastrointestinal: absent: Abdominal Pain, Nausea, Vomiting - Genitourinary Genitourinary: UNREMARKABLE - Musculoskeletal Musculoskeletal: UNREMARKABLE - Integumentary Integumentary: UNREMARKABLE - Neurological Neurological: UNREMARKABLE - Psychiatric Psychiatric: UNREMARKABLE Critical Care Progress Note - Extremities/Vascular Does the Patient have a Central Venous Catheter?: No Does the Patient need a Central Venous Catheter?: No Does the Patient have a Tran Catheter?: No Does the Patient need a Tran Catheter?: No - Prophylaxis GI Prophylaxis GI: PPI - Prophylaxis DVT Prophylaxis DVT: SCDs - Nutrition Nutrition: Nutrition Category Date Time Status Regular Diet [DIET] Diets 01/18/17 Breakfast Ordered Assessment/Plan - Assessment and Plan (Free Text) Assessment: 76M w/R pneumothorax s/p Chest tube insertion, improved. Plan: Neuro AOx3 Stable CVS Hx CAD w/stents, PR ASA Lipitor Lisinopril Pulm R pneumothorax DUonebs CT in R side of chest to wall suction Morphine 2mg increased to 4mg Q4H PRN Ofirmev x 1 SaO2 93% on 3L via NC Target SaO2>94% Pulm following Surgery following- daily CXR, Nephro Electrolytes WNL GI Regular diet hx Prostate CA Urinates freely Endo BS WNL Target euglycemia ID Afebrile Slight leukocytosis 11.1 from 11 Monitor MSK OOBTC GI/DVT SCDs Protonix Dispo Stable Transfer to med-surg DW attending Yara, PGY-1 - Date & Time Date: 01/18/17 Time: 10:00 <Jaswinder HUGHES,Yakov H - Last Filed: 01/18/17 16:44> CCU Objective - Vital Signs / Intake & Output Intake and Output (Last 8hrs): Intake & Output 01/18/17 01/18/17 01/18/17 06:59 14:59 22:59 Weight 210 lb 6.4 oz 210 lb - Medications Active Medications: Active Medications Generic Name Dose Route Start Last Admin Trade Name Freq PRN Reason Stop Dose Admin Albuterol/Ipratropium 3 ml 01/18/17 03:28 Duoneb 3 Mg/0.5 Mg (3 Ml) Ud IH Q2H PRN Shortness of Breath Aspirin 81 mg 01/18/17 10:00 01/18/17 09:01 Ecotrin PO 81 mg DAILY SERGIO Administration Atorvastatin Calcium 20 mg 01/18/17 10:00 01/18/17 09:00 Lipitor PO 20 mg DAILY SERGIO Administration Home Med 1 unit 01/18/17 18:00 Home Med PO BID SERGIO Home Med 1 unit 01/18/17 14:00 01/18/17 15:22 Home Med PO 1 unit TID SERGIO Administration Lisinopril 10 mg 01/18/17 10:00 01/18/17 09:01 Zestril PO 10 mg DAILY SERGIO Administration Morphine Sulfate 4 mg 01/18/17 10:31 01/18/17 15:09 Morphine IVP 4 mg Q4H PRN Administration Pain, moderate (4-7) Pantoprazole Sodium 40 mg 01/18/17 06:00 01/18/17 07:31 Protonix Ec Tab PO 40 mg 0600 SERGIO Administration - Patient Studies Lab Studies: Lab Studies 01/18/17 01/18/17 Range/Units 06:30 06:30 WBC 11.1 H (4.5-11.0) 10^3/ul RBC 4.28 (3.5-6.1) 10^6/uL Hgb 13.7 L (14.0-18.0) g/dL Hct 39.2 L (42.0-52.0) % MCV 91.6 (80.0-105.0) fl MCH 32.0 (25.0-35.0) pg MCHC 34.9 (31.0-37.0) g/dl RDW 13.6 (11.5-14.5) % Plt Count 170 (120.0-450.0) 10^3/uL MPV 10.4 (7.0-11.0) fl Gran % 81.4 H (50.0-68.0) % Lymph % (Auto) 8.4 L (22.0-35.0) % Bryan % (Auto) 9.2 H (1.0-6.0) % Eos % (Auto) 0.8 L (1.5-5.0) % Baso % (Auto) 0.2 (0.0-3.0) % Gran # 9.07 H (1.4-6.5) Lymph # 0.9 L (1.2-3.4) Bryan # 1.0 H (0.1-0.6) Eos # 0.1 (0.0-0.7) Baso # 0.02 (0.0-2.0) K/mm3 Sodium 139 (132-148) mmol/L Potassium 4.1 (3.6-5.0) mmol/L Chloride 104 (98-107) mmol/L Carbon Dioxide 23 (21-33) mmol/L Anion Gap 16 (10-20) BUN 18 (7-21) mg/dL Creatinine 1.0 (0.5-1.4) mg/dL Est GFR ( Amer) > 60 Est GFR (Non-Af Amer) > 60 Random Glucose 124 H (70-110) mg/dL Calcium 9.3 (8.4-10.5) mg/dL Laboratory Results - last 24 hr 01/18/17 01/18/17 06:30 06:30 WBC 11.1 H RBC 4.28 Hgb 13.7 L Hct 39.2 L MCV 91.6 MCH 32.0 MCHC 34.9 RDW 13.6 Plt Count 170 MPV 10.4 Gran % 81.4 H Lymph % (Auto) 8.4 L Bryan % (Auto) 9.2 H Eos % (Auto) 0.8 L Baso % (Auto) 0.2 Gran # 9.07 H Lymph # 0.9 L Bryan # 1.0 H Eos # 0.1 Baso # 0.02 Sodium 139 Potassium 4.1 Chloride 104 Carbon Dioxide 23 Anion Gap 16 BUN 18 Creatinine 1.0 Est GFR ( Amer) > 60 Est GFR (Non-Af Amer) > 60 Random Glucose 124 H Calcium 9.3 Critical Care Progress Note - Nutrition Nutrition: Nutrition Category Date Time Status Regular Diet [DIET] Diets 01/18/17 Breakfast Ordered Attending/Attestation - Attestation I have personally seen and examined this patient.: Yes I have fully participated in the care of the patient.: Yes I have reviewed all pertinent clinical information: Yes Notes (Text): 01/18/17 16:41 76 y/p w/ PTX s/p Ct placement Lung expansion achieved. CT placed on suction ---> water seal. The patient is stable on transfer. Surgical team is following currently on the medical floor.
[2017-01-18] MEDS: LIALDA 1.2 GM PO SCH ×4 (15:04→18:19)
--- NOTE | 2017-01-18 17:36 | CP.PCM.PCO ---
Addendum Addendum: 01/18/17 17:28 Randolph Cochran D.O. PGY-2, D.O. On Duty (D.O.O.D.) Received page to evaluate the patient. 76 year old male who presented with pneumothorax s/p chest tube who is complaining of right sided chest pain. Patient states the pain started shortly after having come upstairs from the ICU and after he was not on "the IV tylenol. " Patient states the pain is intermittent, R sided, non-radiating, 8/10 in severity, and NOT like his previous heart attacks. Patient does have a prior [place] history with 5 stents. At this time surgery is at bedside evaluating the chest tube as well. Gen Well developed, well nourished, pleasant elderly male, daughter at bedside HEENT NC, AT Heart S1/S2, bradycardic (50s on monitor), chest pain reproducible when surgery team changing dressing on chest tube Lungs CTAB, R side chest tube in place secured with nylon Abd Soft, NT, ND Ext warm, NT Neuro AAOx4, LEVI, fluid speech R sided chest pain Given extensive cardiac history will order troponin x1, EKG, and aspirin 81 chewable STAT Discussed case with surgery team, pain likely from chest tube and they will be adjusting his pain regimen Will change patient to remote telemetry given his bradycardia Called Dr Ramos to discuss, agrees with plan
[2017-01-18] MEDS: RANEXA 500 MG PO SCH (17:43)
[2017-01-18] MEDS: Lidocaine 5% Patch TD SCH (17:44)
--- NOTE | 2017-01-18 18:33 | CARD ---
APPROVED REPORT EKG Measurement Heart [id number] [place] [id number] <Conclusion> Sinus bradycardia with premature atrial complexes with aberrant conduction Possible Inferior infarct, age undetermined Cannot rule out Anterior infarct, age undetermined ST & T wave abnormality, consider lateral ischemia Abnormal ECG
--- NOTE | 2017-01-18 19:05 | CARD ---
APPROVED REPORT EKG Measurement Heart [id number] [place] [id number] <Conclusion> Normal sinus rhythm Inferior infarct, age undetermined Abnormal ECG
--- NOTE | 2017-01-19 01:43 | HP ---
HISTORY OF PRESENT ILLNESS: The patient is a 76-year-old male, in room 361, bed 1. The patient had a biopsy of the lungs for a small lesion found on CAT scan. Things were uneventful, he went home and subsequently developed shortness of breath. The patient has since come back to the emergency room with the shortness of breath and was found to have a pneumothorax. PHYSICAL EXAMINATION VITAL SIGNS: Temperature of 97.6, pulse rate of 54, blood pressure 133/84, respiratory rate of 20 with an O2 saturation of 99% on a nasal cannula. HEENT: PERRLA. EOMI. No icterus. NECK: Supple with a full range of motion. There is no jugular venous distention or bruits present. HEART: Regular rate and rhythm. LUNGS: Diminished breath sounds bilaterally. There is a chest tube in place. ABDOMEN: Soft, nontender. Bowel sounds are normoactive. EXTREMITIES: Show no deformities or edema with a full range of motion. NEUROLOGICALLY: The patient is intact. LABORATORY DATA: WBCs are 11.1, hemoglobin and hematocrit of 13.7 and 39.2. Coagulation profile is essentially within normal limits. SMA-23 is normal with the exception of a random glucose of 124. The patient now feels much more comfortable. Repeat chest x-rays will be done when the lungs are reexpanded. The chest tube will be discontinued. DIAGNOSES: At this time are, 1. Pneumothorax. 2. Hypertension. 3. Coronary artery disease. 4. Chronic obstructive pulmonary disease. Dr. Curran will follow the patient. Continued management will depend on reexpansion of the lung. Rohit Ramos MD
[2017-01-19] MEDS: Pantoprazole 40 mg EC Tab PO SCH (05:30)
[2017-01-19 07:02] LABS: BASO # 0.02 K/mm3 (0.0-2.0); BASO % 0.3 % (0.0-3.0); EOS # 0.3 (0.0-0.7); EOS % 3.4 % (1.5-5.0); GRAN # 5.38 (1.4-6.5); GRAN % 74.2 % (50.0-68.0); HEMATOCRIT 37.3 % (42.0-52.0); LYMPH # 0.9 (1.2-3.4); LYMPH % 12.3 % (22.0-35.0); MEAN CELL VOLUME 91.4 fl (80.0-105.0); MEAN CORPUSCULAR HEMOGLOBIN 31.4 pg (25.0-35.0); MEAN CORPUSCULAR HGB CONC 34.3 g/dl (31.0-37.0); MEAN PLATELET VOLUME 10.3 fl (7.0-11.0); MONO # 0.7 (0.1-0.6); MONO % 9.8 % (1.0-6.0); RED CELL DISTRIBUTION WIDTH 13.5 % (11.5-14.5); WHITE BLOOD COUNT 7.3 10^3/ul (4.5-11.0)
[2017-01-19 07:17] LABS: BLOOD UREA NITROGEN 22 mg/dL (7-21); CALCIUM 8.8 mg/dL (8.4-10.5); CARBON DIOXIDE 22 mmol/L (21-33); CHLORIDE 105 mmol/L (98-107); GFR AFRICAN-AMERICAN > 60; GLUCOSE,RANDOM 116 mg/dL (70-110); POTASSIUM 3.9 mmol/L (3.6-5.0); SODIUM 137 mmol/L (132-148)
--- NOTE | 2017-01-19 09:13 | RAD ---
HISTORY: s/p pneumo with chest tube insertion COMPARISON: 01/18/2017. FINDINGS: There is stable position of a right right-sided chest tube. LUNGS: The lungs are well inflated. There is subsegmental atelectasis in the right lower lobe. PLEURA: No significant pleural effusion identified, no pneumothorax apparent. CARDIOVASCULAR: Normal. OSSEOUS STRUCTURES: No significant abnormalities. VISUALIZED UPPER ABDOMEN: Normal. OTHER FINDINGS: None. IMPRESSION: Stable position of right chest tube. No pneumothorax. Persistent right basilar atelectasis
[2017-01-19] MEDS: Lidocaine 5% Patch TD SCH (09:30)
[2017-01-19] MEDS ORDERED: MESALAMINE PO SCH (10:00)
--- NOTE | 2017-01-19 10:39 | PN ---
DATE: SUBJECTIVE: The patient is a 76-year-old male with a history of coronary artery disease and emphysema who is a former smoker and currently has a chest tube in. The tube is not closed to suction. He had developed pneumothorax after getting a lung biopsy. He is doing fine. There have been no acute events overnight. PHYSICAL EXAMINATION VITAL SIGNS: Temperature of 98.6, pulse rate of 57, and blood pressure of 131/61 with an O2 saturation of 94% on a nasal cannula. HEENT: Negative. NECK: Supple. LUNGS: Diminished breath sounds bilaterally with present breath sound bilaterally. HEART: Regular rate and rhythm. ABDOMEN: Benign. NEUROLOGICAL: The patient is intact. The chest tube will probably be extracted later on today and will repeat chest x-ray, if the lungs remain inflated, the patient will be discharge possibly tomorrow. DISCHARGE DIAGNOSES: 1. Pneumothorax. 2. Chronic obstructive pulmonary disease. 3. Coronary artery disease. Rohit Ramos MD
[2017-01-19] MEDS: RANEXA 500 MG PO SCH ×2 (11:03→18:01)
[2017-01-19] MEDS: LIALDA 1.2 GM PO SCH ×3 (11:04→18:01)
--- NOTE | 2017-01-19 12:25 | CP.PCM.PN ---
Subjective - Date & Time of Evaluation Date of Evaluation: 01/19/17 Time of Evaluation: 07:40 - Subjective Subjective: Patient seen and examined this morning. Reports improvement of chest pain. No acute events over night. Scant output from chest tube. Objective - Vital Signs/Intake and Output Vital Signs (last 24 hours): Temp Pulse Resp BP Pulse Ox 98.6 F 48 L 20 131/61 94 L 01/19/17 00:33 01/19/17 05:22 01/19/17 00:33 01/19/17 00:33 01/19/17 00:33 Intake and Output: 01/19/17 01/19/17 06:59 18:59 Intake Total 360 240 Output Total 415 150 Balance -55 90 - Medications Medications: Current Medications Acetaminophen (Tylenol 325mg Tab) 975 mg PO Q8H [facility] Last Admin: 01/19/17 09:31 Dose: 975 mg Albuterol/Ipratropium (Duoneb 3 Mg/0.5 Mg (3 Ml) Ud) 3 ml IH Q2H PRN PRN Reason: Shortness of Breath Aspirin (Aspirin Chewable) 81 mg PO DAILY [facility] Last Admin: 01/19/17 09:30 Dose: 81 mg Atorvastatin Calcium (Lipitor) 20 mg PO DAILY [facility] Last Admin: 01/19/17 09:30 Dose: 20 mg Home Med (Home Med) 1 unit PO BID [facility] Last Admin: 01/19/17 11:03 Dose: 1 unit Home Med (Home Med) 1 unit PO TID [facility] Last Admin: 01/19/17 11:04 Dose: 1 unit Ketorolac Tromethamine (Toradol) 30 mg IVP Q6H [facility] Stop: 01/20/17 11:31 Last Admin: 01/19/17 05:38 Dose: Not Given Lidocaine (Lidoderm) 1 ea TD DAILY [facility] Last Admin: 01/19/17 09:30 Dose: 1 ea Lisinopril (Zestril) 10 mg PO DAILY [facility] Last Admin: 01/19/17 09:29 Dose: 10 mg Morphine Sulfate (Morphine) 4 mg IVP Q4H PRN PRN Reason: Pain, moderate (4-7) Last Admin: 01/18/17 15:09 Dose: 4 mg Pantoprazole Sodium (Protonix Ec Tab) 40 mg PO 0600 [facility] Last Admin: 01/19/17 05:30 Dose: 40 mg - Labs Labs: 01/19/17 06:46 01/19/17 06:46 PT 11.3 Seconds (9.9-11.8) 01/17/17 23:50 INR 1.05 (0.93-1.08) 01/17/17 23:50 APTT 34.3 Seconds (23.7-30.8) H 01/17/17 23:50 - Constitutional Appears: No Acute Distress - Head Exam Head Exam: NORMOCEPHALIC - Eye Exam Eye Exam: Normal appearance - ENT Exam ENT Exam: Mucous Membranes Moist - Respiratory Exam Respiratory Exam: NORMAL BREATHING PATTERN - GI/Abdominal Exam GI & Abdominal Exam: Soft - Neurological Exam Neurological Exam: Alert, Awake, Oriented x3 - Psychiatric Exam Psychiatric exam: Normal Mood - Skin Skin Exam: Dry, Intact, Warm Assessment and Plan - Assessment and Plan (Free Text) Assessment: 76M s/p chest tube insertion 2/2 pneumothorax s/p lung biopsy -CXR in AM demonstrated no pneumothorax -CT to water seal -Repeat CXR demonstrated no pneumothorax -Chest tube to be removed tonight -F/u chest tube removal CXR demonstrated no pneumothorax -Patient tolerated procedure well -Clear for discharge from surgical standpoint -D/w Dr. Gage Reza PGY-2
[2017-01-19] MEDS: Morphine 2 mg/ml ISec IVP PRN (14:51)
--- NOTE | 2017-01-19 15:28 | RAD ---
HISTORY: Must be done at 2PM COMPARISON: 01/19/2017. FINDINGS: LUNGS: The right chest tube is stable in position. The lungs are well inflated. Macro COPD. There is right basilar atelectasis. PLEURA: No significant pleural effusion identified, no pneumothorax apparent. CARDIOVASCULAR: Normal. OSSEOUS STRUCTURES: No significant abnormalities. VISUALIZED UPPER ABDOMEN: Normal. OTHER FINDINGS: None. IMPRESSION: Stable position of right chest tube. No pneumothorax. COPD. Right basilar atelectasis.
--- NOTE | 2017-01-19 18:33 | RAD ---
HISTORY: s/p chest tube pull COMPARISON: Chest radiographs 01/19/2017. FINDINGS: LUNGS: Patchy atelectasis or infiltrate seen the right infrahilar space with remaining lung lmabert clear bilaterally. COPD again evident. PLEURA: No significant pleural effusion identified, no pneumothorax apparent. CARDIOVASCULAR: Cardiomegaly appears stable. No pulmonary vascular derangement identified. OSSEOUS STRUCTURES: No significant abnormalities. VISUALIZED UPPER ABDOMEN: Normal. OTHER FINDINGS: None. IMPRESSION: Right infrahilar infiltrate appears increased versus atelectasis. No pleural effusion bilaterally. No left-sided infiltrate. Stable cardiomegaly. COPD again evident.
--- NOTE | 2017-01-19 19:43 | PN ---
DATE: The patient had a tube placed without incident, had been placed on water seal. There was no air leak. The catheter should be removed relatively shortly. 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 Edwin Almonte MD
[2017-01-20 08:27] VITALS: BP 123/68; RESP 20; TEMP 98.2; O2SAT 95
--- NOTE | 2017-01-20 08:51 | RAD ---
HISTORY: s/p pneumo with chest tube insertion COMPARISON: 01/19/2017. FINDINGS: LUNGS: There is patchy airspace disease in the right lower lobe. There is left basilar atelectasis. The lungs are hyperinflated with peribronchial thickening and chronic changes in the upper lobes. PLEURA: No significant pleural effusion identified, no pneumothorax apparent. CARDIOVASCULAR: Normal. OSSEOUS STRUCTURES: No significant abnormalities. VISUALIZED UPPER ABDOMEN: Normal. OTHER FINDINGS: None. IMPRESSION: Improving right lower lobe atelectasis/ pneumonia. COPD.
[2017-01-20] MEDS: Lidocaine 5% Patch TD SCH (09:39)
[2017-01-20] MEDS: RANEXA 500 MG PO SCH (09:41)
[2017-01-20] MEDS: LIALDA 1.2 GM PO SCH (09:41)
[2017-01-20 10:11] VITALS: PULSE 65
--- NOTE | 2017-01-21 09:08 | DS ---
HISTORY OF PRESENT ILLNESS: The patient is a 76-year-old white male being discharged from room 376, bed 1. The patient was initially admitted on the evening after having had a lung biopsy with increasing progressive shortness of breath. X-rays in the emergency room showed that the patient had a pneumothorax. He has a past medical history of COPD, coronary artery disease. PHYSICAL EXAMINATION: VITAL SIGNS: Temperature is 98.2, pulse rate of 54, blood pressure 123/68, respiratory rate of 20 but an O2 saturation of 95% on room air. HEENT: Negative. NECK: Supple with full range of motion. LUNGS: Clear to auscultation and percussion bilaterally. HEART: Regular rate and rhythm. No murmurs, rubs or gallops. ABDOMEN: Benign. NEUROLOGIC: There no focal deficits. LABORATORY DATA: Lab values this morning were not done. The patient's chest tube is absent yesterday. He is currently comfortable. He has good breath sound bilaterally. He will be discharged on previous medications. Of note that the lung biopsy did show adenocarcinoma. 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 DIAGNOSES ON ADMISSION: 1. Pneumothorax. 2. Chest pain, status post chest tube insertion. 3. Chronic obstructive pulmonary disease. 4. Coronary artery disease. Rohit Ramos MD
== END 2017-01-20 10:16 | disposition home or self-care (01) | DRG 200 ==
LOC: ED 23:39 → ERH 01-18 02:00 → CCU 01-18 04:37 → 5RNO 01-18 14:13 → 3RNO 01-18 18:35 → 3RSO 01-19 17:45
PROVIDERS: ADMIT Internal Medicine; ATTEND Internal Medicine
PROC: 0W9930Z Drainage of Right Pleural Cavity with Drainage Device, Percutaneous Approach (ICD-10-PCS; principal; 2017-01-18)
DX: J93.9 Pneumothorax, unspecified (principal); C34.91 Malignant neoplasm of unspecified part of right bronchus or lung; J95.811 Postprocedural pneumothorax; J44.9 Chronic obstructive pulmonary disease, unspecified; R00.1 Bradycardia, unspecified; I10 Essential (primary) hypertension; I25.10 Atherosclerotic heart disease of native coronary artery without angina pectoris; I25.2 Old myocardial infarction; Z85.46 Personal history of malignant neoplasm of prostate; Z79.82 Long term (current) use of aspirin; Z79.899 Other long term (current) drug therapy; F17.210 Nicotine dependence, cigarettes, uncomplicated; Z95.5 Presence of coronary angioplasty implant and graft; K64.8 Other hemorrhoids; Z88.8 Allergy status to other drugs, medicaments and biological substances; Z92.3 Personal history of irradiation; R40.2413 Glasgow coma scale score 13-15, at hospital admission

== ENCOUNTER → 2017-01-17 | Day surgery (SDC) | payer MEDICARE ==
[2017-01-16 13:17] VITALS: BMI 31.3
[~2017-01-17] MED LIST: Lidocaine 1% Inj (20ml) ONE; Midazolam 2 MG/2 ML VIAL ONE; Oxycodone/Acetaminophen 5/325 mg Tab PO PRN; Sodium Chloride 0.45% 1,000 ML IV SCH
[2017-01-17 11:36] LABS: BASO # 0.02 K/mm3 (0.0-2.0); BASO % 0.2 % (0.0-3.0); EOS # 0.1 (0.0-0.7); EOS % 1.3 % (1.5-5.0); GRAN % 78.3 % (50.0-68.0); HEMATOCRIT 42.8 % (42.0-52.0); LYMPH # 1.2 (1.2-3.4); LYMPH % 13.5 % (22.0-35.0); MEAN CORPUSCULAR HEMOGLOBIN 32.7 pg (25.0-35.0); MEAN CORPUSCULAR HGB CONC 35.5 g/dl (31.0-37.0); MEAN PLATELET VOLUME 9.8 fl (7.0-11.0); MONO # 0.6 (0.1-0.6); MONO % 6.7 % (1.0-6.0); RED CELL DISTRIBUTION WIDTH 13.7 % (11.5-14.5)
[2017-01-17 11:45] LABS: BLOOD UREA NITROGEN 16 mg/dL (7-21); CALCIUM 9.7 mg/dL (8.4-10.5); CARBON DIOXIDE 24 mmol/L (21-33); CHLORIDE 103 mmol/L (98-107); GFR AFRICAN-AMERICAN > 60; GLUCOSE,RANDOM 104 mg/dL (70-110); POTASSIUM 4.3 mmol/L (3.6-5.0); SODIUM 141 mmol/L (132-148)
[2017-01-17 11:48] LABS: INR 1.09 (0.93-1.08); PARTIAL THROMBOPLASTIN TIME 37.1 Seconds (23.7-30.8)
[2017-01-17 15:48] VITALS: PULSE 54
[2017-01-17 16:10] VITALS: BP 131/66; RESP 20; TEMP 98.3; O2SAT 93
--- NOTE | 2017-01-17 17:58 | CT ---
PROCEDURE: CT guided right apical lung biopsy. HISTORY: Smoker. 14 mm spiculated right upper lobe lung mass. Evaluate for malignancy PHYSICIAN(S): Solo Ortega MD. TECHNIQUE: The relative risks and indications of the procedure were explained to the patient and consent obtained. The patient was placed prone on the CT scanner and preliminary images through the lung apices obtained. Conscious sedation and monitoring were provided throughout the procedure by a nurse. Extensive emphysema is noted. There is a 14 mm spiculated nodule in the right apex posteriorly.. A right posterior approach was selected and the area prepped and draped in the usual sterile fashion. 1% Xylocaine was used to anesthetize the skin and soft tissues. A 19 gauge guiding needle was advanced into the 14 mm right apical nodule. Its position was confirmed with CT. Using coaxial technique, multiple core biopsies were obtained. The postprocedure images show no evidence of large pneumothorax or significant hemorrhage.. IMPRESSION: 1. CT-guided right apical lung biopsy as described above.
--- NOTE | 2017-01-17 18:15 | RAD ---
HISTORY: rt lung bx COMPARISON: Chest radiographs 10/28/2016. FINDINGS: LUNGS: Hyperinflated lungs are again appreciated compatible with COPD. Penetration of the left base is challenged however there is no definite infiltrate bilaterally. PLEURA: No significant pleural effusion identified, no pneumothorax apparent. CARDIOVASCULAR: Cardiomegaly appears stable. No definite pulmonary vascular congestion appreciated. OSSEOUS STRUCTURES: Multilevel thoracic spondylosis is identified. VISUALIZED UPPER ABDOMEN: Normal. OTHER FINDINGS: None. IMPRESSION: COPD. No definitive infiltrate or pleural effusion identified. Cardiomegaly appears stable. No pneumothorax apparent.
== END | disposition home or self-care (01) ==
LOC: SDS 10:52
PROVIDERS: ATTEND Radiology Vascular & Interventional Radiology
DX: C34.11 Malignant neoplasm of upper lobe, right bronchus or lung (principal); J44.9 Chronic obstructive pulmonary disease, unspecified; I25.10 Atherosclerotic heart disease of native coronary artery without angina pectoris; Z87.891 Personal history of nicotine dependence; Z85.46 Personal history of malignant neoplasm of prostate; Z95.5 Presence of coronary angioplasty implant and graft

== ENCOUNTER 2018-05-15 11:55 | Outpatient (CLI) | payer MEDICARE | END 2018-05-15 11:56 | disposition home or self-care (01) | LOC: RAD 11:55 ==

== ENCOUNTER 2018-06-04 23:02 | Emergency (ER) | payer MEDICARE ==
[2018-06-04 23:02] VITALS: BMI 31.0
[2018-06-04 23:19] VITALS: TEMP 97.8
[2018-06-04] MEDS ORDERED: Silver Nitrate Topical - Stick TOP ONE (23:43)
--- NOTE | 2018-06-04 23:50 | ED PDOC ---
Arrival/HPI - General Chief Complaint: ENT Problem Time Seen by Provider: 06/04/18 23:15 Historian: Patient - History of Present Illness Narrative History of Present Illness (Text): 06/04/18 23:42 78 year old male, whose past medical history includes COPD, lung mass, CAD, and hypertension, who presents to the emergency department for intermittent nosebleeds. Patient states he has had a couple of occasions of nosebleeds. Patient denies any trauma. Patient denies blood thinner use. Patient states though he does take aspirin, he has not taken it recently. Patient is currently not bleeding. Patient denies any headache, dizziness, fevers, chills, shortness of breath, chest pain, cough, abdominal pain, nausea, vomiting, diarrhea, back pain, neck pain, or any other complaints. PMD: Dr. Ramos Ladle Repairman: Dr. Alexander Time/Duration: Prior to Arrival Symptom Onset: Gradual Symptom Course: Improving, Intermittent Activities at Onset: Light Context: Home Past Medical History - Provider Review Nursing Documentation Reviewed: Yes - Tetanus Immunization Tetanus Immunization: Unknown - Cardiac Hx Cardiac Disorders: Yes Hx KS: Yes Hx Hypertension: Yes Hx Pacemaker: No - Pulmonary Hx Respiratory Disorders: Yes Hx Chronic Obstructive Pulmonary Disease (COPD): Yes Hx Lung Cancer: Yes - Neurological Hx Paralysis: No - HEENT Hx HEENT Disorder: Yes (RX READING GLASSES) - Hematological/Oncological Hx Blood Transfusions: No - Musculoskeletal/Rheumatological Hx Musculoskeletal Disorders: Yes - Gastrointestinal Hx Gastrointestinal Disorders: (INTERNAL HEMORRHOIDS) - Psychiatric Hx Emotional Abuse: No Hx Physical Abuse: No Hx Substance Use: No - Surgical History Hx Coronary Stent: Yes (x5) Other/Comment: CARDIAC STENTS x5 - Anesthesia Hx Anesthesia Reactions: No Hx Malignant Hyperthermia: No - Suicidal Assessment Feels Threatened In Home Enviroment: No Family/Social History - Physician Review Nursing Documentation Reviewed: Yes Family/Social History: No Known Family HX Smoking Status: Former Smoker Hx Alcohol Use: Yes (OCCASIONAL BEER) Frequency of alcohol use: Few days per week Hx Substance Use: No Hx Substance Use Treatment: No Allergies/Home Meds Allergies/Adverse Reactions: Allergies diltiazem Allergy (Severe, Verified 01/16/17 12:04) RASH Home Medications: Home Meds Medication Instructions Recorded Confirmed Aspirin [Aspir 81] 81 mg PO DAILY 09/25/11 01/17/17 Atorvastatin Calcium [Lipitor] 20 mg PO DAILY 09/25/11 01/17/17 Albuterol 0.083% [Albuterol 0.083% 3 ml IH Q6H PRN 01/16/17 01/17/17 Inhal Clara (2.5 mg/3 ml) UD] Lisinopril [Zestril] 10 mg PO DAILY 01/16/17 01/17/17 Mesalamine [Lialda] 2 tab PO QAM 01/16/17 01/17/17 Ranolazine [Ranexa] 500 mg PO BID 01/16/17 01/17/17 Atropine/Diphenoxylate [Lomotil 1 tab PO [facility] PRN 01/17/17 01/17/17 0.025-2.5 mg tablet] levoFLOXacin [Levaquin] 500 mg PO DAILY 01/17/17 01/17/17 Review of Systems - Physician Review All systems were reviewed & negative as marked: Yes - Review of Systems Constitutional: absent: Fevers, Night Sweats ENT: Epistaxis (Currently resolved) Respiratory: absent: SOB, Cough Cardiovascular: absent: Chest Pain Gastrointestinal: absent: Abdominal Pain, Diarrhea, Nausea, Vomiting Musculoskeletal: absent: Back Pain, Neck Pain Neurological: absent: Headache, Dizziness Physical Exam Vital Signs Reviewed: Yes Vital Signs Temp Pulse Resp BP Pulse Ox 06/04/18 23:18 97.8 F 61 18 132/76 93 L Temperature: Afebrile Blood Pressure: Normal Pulse: Regular Respiratory Rate: Normal Appearance: Positive for: Well-Appearing, Non-Toxic, Comfortable Pain Distress: None Mental Status: Positive for: Alert and Oriented X 3 - Systems Exam Head: Present: Atraumatic, Normocephalic Pupils: Present: PERRL Extroacular Muscles: Present: EOMI Conjunctiva: Present: Normal Mouth: Present: Moist Mucous Membranes Nose (Internal): Present: No Active Bleeding (dried blood in the right anterior nares) Neck: Present: Normal Range of Motion Respiratory/Chest: Present: Clear to Auscultation, Good Air Exchange. No: Respiratory Distress, Accessory Muscle Use Cardiovascular: Present: Regular Rate and Rhythm, Normal S1, S2. No: Murmurs Abdomen: No: Tenderness, Distention, Peritoneal Signs Back: Present: Normal Inspection Upper Extremity: Present: Normal Inspection. No: Cyanosis, Edema Lower Extremity: Present: Normal Inspection. No: Edema Neurological: Present: GCS=15, CN II-XII Intact, Speech Normal Skin: Present: Warm, Dry, Normal Color. No: Rashes Psychiatric: Present: Alert, Oriented x 3, Normal Insight, Normal Concentration Medical Decision Making ED Course and Treatment: 06/04/18 23:55 Impression: 78 year old male presents for intermittent nosebleeds Plan: -- Silver Nitrate topical stick -- Reassess and disposition Prior Visits: Notes and results from previous visits were reviewed Progress Notes: 06/05/18 00:17 PROCEDURE: EPISTAXIS MANAGEMENT Performed by the emergency provider Consent: Informed consent was obtained after discussion of the risks, benefits, and alternatives to the procedure. Timeout: A timeout to verify the correct patient, procedure, and site was performed immediately prior to the procedure. Indication: Nasal bleeding control Location: right naris Bleeding Source: ANTERIOR Cautery: Silver Nitrate Post-procedure: Good hemostasis. The patient was observed following procedure and no repeat episode of bleeding was noted. Patient tolerated the procedure well with no immediate complications. - Scribe Statement The provider has reviewed the documentation as recorded by the Kevin Brice Provider Scribe Attestation: All medical record entries made by the Kevin were at my direction and personally dictated by me. I have reviewed the chart and agree that the record accurately reflects my personal performance of the history, physical exam, medical decision making, and the department course for this patient. I have also personally directed, reviewed, and agree with the discharge instructions and disposition. Disposition/Present on Arrival - Present on Arrival Any Indicators Present on Arrival: No History of DVT/PE: No History of Uncontrolled Diabetes: No Urinary Catheter: No History of Decub. Ulcer: No History Surgical Site Infection Following: None - Disposition Have Diagnosis and Disposition been Completed?: Yes Diagnosis: Epistaxis Disposition: HOME/ ROUTINE Disposition Time: 00:15 Patient Plan: Discharge Patient Problems: Current Active Problems Problem Status Onset Epistaxis Acute Condition: GOOD Discharge Instructions (ExitCare): Nosebleeds (DC) Additional Instructions: Avoid any digital manipulation/avoid sneezing/follow up with the ear/nose/throat doctor this week Referrals: Rohit Ramos MD [Primary Care Provider] - Follow up with primary German Grewal DO [Doctor Osteopathy] - Follow up with primary Forms: [facility] (Amharic)
[2018-06-05 00:25] VITALS: BP 133/56; PULSE 63; RESP 16; O2SAT 96
== END 2018-06-05 00:19 | disposition home or self-care (01) ==
LOC: ED 23:02
DX: R04.0 Epistaxis (principal); I10 Essential (primary) hypertension; I25.10 Atherosclerotic heart disease of native coronary artery without angina pectoris; J44.9 Chronic obstructive pulmonary disease, unspecified; Z87.891 Personal history of nicotine dependence

== ENCOUNTER 2018-06-24 07:51 | Day surgery (SDC) | payer MEDICARE | END 2018-06-24 10:45 | disposition home or self-care (01) | LOC: SDS 07:51 | DX: L98.499 Non-pressure chronic ulcer of skin of other sites with unspecified severity (principal); I10 Essential (primary) hypertension; I25.10 Atherosclerotic heart disease of native coronary artery without angina pectoris; J44.9 Chronic obstructive pulmonary disease, unspecified; Z85.118 Personal history of other malignant neoplasm of bronchus and lung; Z90.2 Acquired absence of lung [part of]; Z85.46 Personal history of malignant neoplasm of prostate ==

== ENCOUNTER 2018-07-15 10:20 | Outpatient (CLI) | payer MEDICARE | END 2018-07-15 10:21 | disposition home or self-care (01) | LOC: LAB 10:20 ==